=== PATIENT | female | born 1960 | race Caucasian/White ===

== ENCOUNTER → 2016-07-29 | Outpatient (CLI) | payer BC ==
--- NOTE | 2016-07-29 12:24 | RAD ---
Three view left knee. Indication: PAIN IN LEFT KNEE Comparison: None Impression: Moderate tricompartmental osteoarthritis most pronounced medially with joint space narrowing and moderate joint line osteophyte formation. No subchondral sclerosis or cystic change. Moderate size suprapatellar knee effusion. MRI can better evaluate for internal derangement. Mild patella nydia. No acute fracture. Soft tissues are intact without radiopaque foreign body. Electronically signed by: Quang Da Silva MD 07/29/2016 12:22
--- NOTE | 2016-07-29 12:25 | RAD ---
Single frontal view pelvis. Indication: PAIN IN LEFT HIP Comparison: April 23, 2016. Impression: Pelvic ring intact. No significant joint space narrowing of the hips. Minimal bilateral acetabular roof osteophyte formation. Moderate bilateral sacroiliac joint osteoarthritis, left greater than right. Facet arthrosis suspected at L5 - S1 on the left. Electronically signed by: Quang Da Silva MD 07/29/2016 12:24
--- NOTE | 2016-07-29 12:25 | RAD ---
Three view right knee. Indication: PAIN IN RIGHT KNEE Comparison: None Impression: Moderate medial compartment osteoarthritis with joint space narrowing and moderate joint line osteophytes. Less pronounced mild to moderate changes of the lateral and patellofemoral compartments. Moderate size knee effusion. MRI can better evaluate for internal derangement as clinically indicated. Mild patella nydia. No acute fracture. Question millimetric ossified loose body projecting at the intercondylar notch on the frontal view. Electronically signed by: Quang Da Silva MD 07/29/2016 12:23
== END ==
LOC: RAD 07:49
PROVIDERS: ATTEND Orthopaedic Surgery
DX: M17.0 Bilateral primary osteoarthritis of knee (principal); M25.462 Effusion, left knee; M25.461 Effusion, right knee; M47.898 Other spondylosis, sacral and sacrococcygeal region; M47.897 Other spondylosis, lumbosacral region; M25.552 Pain in left hip; M25.551 Pain in right hip

== ENCOUNTER → 2016-09-18 | Outpatient (CLI) | payer BC | END | disposition home or self-care (01) | LOC: RAD 10:37 | PROVIDERS: ATTEND Orthopaedic Surgery | DX: Z01.818 Encounter for other preprocedural examination (principal) ==